=== PATIENT | female | born 1965 | race Caucasian/White ===

== ENCOUNTER 2021-03-13 15:05 | Outpatient (REF) | payer OTHER, SELFPAY ==
[2021-03-13 15:48] LABS: MANUAL DIFF FLAG NO
[2021-03-13 15:53] LABS: Basophils Absolute Auto 0.1 X10*3/uL (0.0-0.2); Basophils Percent Auto 0.5 % (0-2); Eosinophils Absolute Auto 2.2 X10*3/uL (0.0-0.4); Eosinophils Percent Auto 22.2 % (0-4); Hematocrit 39.6 % (37-47); Hemoglobin 13.7 g/dl (12.0-16.0); Imm Gran Abs Auto 0.03 X10*3/uL (0.00-0.03); Imm Gran Pct Auto 0.3 % (0.0-0.4); Lymphocytes Absolute Auto 2.5 X10*3/uL (1.2-4.9); Lymphocytes Percent Auto 25.1 % (20-40); Mean Corpuscular HGB Conc 34.6 g/dl (31.0-35.0); Mean Corpuscular Hemoglobin 34.1 pg (27.0-33.0); Mean Corpuscular Volume 98.5 fL (80-98); Mean Platelet Volume 11.3 fL (9.4-12.3); Monocytes Absolute Auto 0.9 X10*3/uL (0.1-1.2); Monocytes Percent Auto 9.3 % (2-11); Neutrophils Absolute Auto 4.2 X10*3/uL (2.0-8.3); Neutrophils Percent Auto 42.6 % (45-73); Platelet Count 346 X10*3/uL (160-400); Red Blood Count 4.02 X10*6/uL (4.20-5.50); Red Cell Distribution Width 11.5 % (11.0-16.0); White Blood Count 9.8 X10*3/uL (4.8-10.8)
[2021-03-13 16:00] LABS: Estimated Average Glucose 128 mg/dL; Hemoglobin A1c % 6.1 %
[2021-03-13 16:22] LABS: Alanine Aminotransferase 16 U/L (0-31); Albumin Level 4.3 g/dL (3.5-5.0); Alkaline Phosphatase 65 U/L (39-117); Anion Gap 10 (12-20); Aspartate Amino Transferase 11 U/L (5-31); Bilirubin Total < 0.2 mg/dL (0.0-1.0); Blood Urea Nitrogen 16 mg/dL (9-16); Calcium 9.8 mg/dL (8.4-10.2); Carbon Dioxide 28 mmol/L (22-29); Chloride 106 mmol/L (96-108); Estimated Glomerular Filt Rate > 60; Glucose Random 111 mg/dL (60-115); Lipase 60 U/L (8-78); Potassium 4.3 mmol/L (3.3-5.1); Sodium 140 mmol/L (135-145); Total Protein 7.1 g/dL (6.5-8.0)
== END 2021-03-13 15:06 | disposition home or self-care (01) ==
LOC: HO.LAB 15:05
PROVIDERS: PCP Internal Medicine; Visit Provider Internal Medicine
DX: R10.9 Unspecified abdominal pain (principal); R73.9 Hyperglycemia, unspecified
CPT/HCPCS: 36415; 80053; 83036; 83690; 85025

== ENCOUNTER 2021-07-06 14:22 | Outpatient (REF) | payer OTHER, SELFPAY ==
--- NOTE | ~2021-07-06 | MM_ITS ---
EXAMINATION: MM SCREENING DIGITAL BREAST TOMOSYNTHESIS, BILATERAL CLINICAL INFORMATION: Screening. Asymptomatic. The lifetime risk of breast cancer based on the Tyrer-Cuzick Model is 25%. COMPARISON: Mammography: 07/10/2020, 06/30/2020, 01/26/2019, 12/30/2017 TECHNIQUE: Digital breast tomosynthesis is performed in both the craniocaudal and mediolateral oblique views along with computer-aided detection (CAD). Synthesized 2D images are generated from the tomosynthesis. FINDINGS: There are scattered areas of fibroglandular density (ACR BI-RADS breast composition Category b). There are no significant masses, abnormal calcifications, or other abnormalities. There are 3 biopsy clip markers again noted left breast mid 9:00 position and 2 outer quadrant. There is no developing density. The axilla and skin contours are unremarkable. No significant changes. MM/MM tomosynthesis screening BI IMPRESSION: No mammographic evidence of malignancy. ASSESSMENT: BI-RADS 2: Benign RECOMMENDATION: 1. Routine annual mammography screening. 2. The lifetime risk of breast cancer based on the Tyrer-Cuzick Model is 25%. Additional annual adjunct screening with breast MRI may be of benefit in women with a risk score of 20% or greater. This patient's information was entered into a reminder system with a target due date for their next mammogram.
== END 2021-07-06 14:23 | disposition home or self-care (01) ==
LOC: HO.MAMMO 14:22
PROVIDERS: PCP Internal Medicine; Visit Provider Internal Medicine
DX: Z12.31 Encounter for screening mammogram for malignant neoplasm of breast (principal)
CPT/HCPCS: 77063; 77067

== ENCOUNTER 2022-07-19 07:33 | Outpatient (REF) | payer OTHER, SELFPAY ==
--- NOTE | ~2022-07-19 | MM_ITS ---
EXAMINATION: MM SCREENING DIGITAL BREAST TOMOSYNTHESIS, BILATERAL CLINICAL INFORMATION: Screening. Asymptomatic. Family history breast cancer, mother. The lifetime risk of breast cancer based on the Tyrer-Cuzick Model is 21%. COMPARISON: Mammography: 07/06/2021, 07/10/2020, 06/30/2020, 01/26/2019 TECHNIQUE: Digital breast tomosynthesis is performed in both the craniocaudal and mediolateral oblique views along with computer-aided detection (CAD). Synthesized 2D images are generated from the tomosynthesis. FINDINGS: There are scattered areas of fibroglandular density (ACR BI-RADS breast composition Category b). There are no significant masses, abnormal calcifications, or other abnormalities. There are 3 biopsy clip markers left breast. Parenchymal pattern is similar to prior studies and there is no developing density or interval architectural abnormality. No significant changes. MM/MM tomosynthesis screening BI IMPRESSION: No mammographic evidence of malignancy. ASSESSMENT: BI-RADS 1: Negative RECOMMENDATION: Routine annual mammography screening. This patient's information was entered into a reminder system with a target due date for their next mammogram.
== END 2022-07-19 07:34 | disposition home or self-care (01) ==
LOC: HO.MAMMO 07:33
PROVIDERS: PCP Internal Medicine; Visit Provider Obstetrics & Gynecology
DX: Z12.31 Encounter for screening mammogram for malignant neoplasm of breast (principal)
CPT/HCPCS: 77063; 77067

== ENCOUNTER 2022-07-31 10:43 | Emergency (ER) | payer OTHER, SELFPAY ==
--- NOTE | 2022-07-31 | ECG_ITS ---
Test Reason : dizzyness/palpitations Blood Pressure : / mmHG Vent. Rate : 065 BPM Atrial Rate : 065 BPM P-R Int : 188 ms QRS Dur : 090 ms QT Int : 410 ms P-R-T Axes : 033 026 022 degrees QTc Int : 426 ms Normal sinus rhythm Normal ECG When compared with ECG of 17-SEP-2017 21:14, Nonspecific T wave abnormality, improved in Anterolateral leads Referred By: Generic ED Physician Electronically Signed By:ZOLTAN PABON
--- NOTE | ~2022-07-31 | XR_ITS ---
EXAMINATION: XR chest 2V CLINICAL INFORMATION: Reason for Exam PALPITATIONS,DIZZY COMPARISON: No prior chest x-ray available in our system for comparison at the time of this dictation. TECHNIQUE: XR chest 2V Lungs and Lucila: Both lungs are clear. Pleura: Normal. Costophrenic angles are sharp. No pneumothorax. Heart: The heart is normal in size. Mediastinum: The mediastinum is within normal limits.. Bones: Skeletal structures included are normal for patient's age. XR/XR chest 2V IMPRESSION: Normal chest x-ray.
[2022-07-31 11:33] VITALS: BP 136/66; PULSE 65; RESP 17; TEMP 36.2; O2SAT 98; BMI 27.7
[2022-07-31 13:44] LABS: MANUAL DIFF FLAG NO
[2022-07-31 13:50] LABS: Basophils Absolute Auto 0.1 X10*3/uL (0.0-0.2); Basophils Percent Auto 1.2 % (0-2); Eosinophils Absolute Auto 0.2 X10*3/uL (0.0-0.4); Eosinophils Percent Auto 3.3 % (0-4); Hematocrit 38.1 % (37.0-47.0); Hemoglobin 13.3 g/dl (12.0-16.0); Imm Gran Abs Auto 0.02 X10*3/uL (0.00-0.03); Imm Gran Pct Auto 0.3 % (0.0-0.4); Lymphocytes Absolute Auto 1.8 X10*3/uL (1.2-4.9); Lymphocytes Percent Auto 26.1 % (20-40); Mean Corpuscular HGB Conc 34.9 g/dl (31.0-35.0); Mean Corpuscular Hemoglobin 34.1 pg (27.0-33.0); Mean Corpuscular Volume 97.7 fL (80.0-98.0); Mean Platelet Volume 10.7 fL (9.4-12.3); Monocytes Absolute Auto 0.7 X10*3/uL (0.1-1.2); Monocytes Percent Auto 10.4 % (2-11); Neutrophils Absolute Auto 4.1 x10*3/uL (2.0-8.3); Neutrophils Percent Auto 58.7 % (45-73); Platelet Count 299 X10*3/uL (160-400); Red Cell Distribution Width 11.6 % (11.0-16.0); White Blood Count 6.9 X10*3/uL (4.8-10.8)
[2022-07-31 14:16] LABS: Anion Gap 14 (12-20); Blood Urea Nitrogen 18 mg/dL (9-16); Calcium 9.5 mg/dL (8.4-10.2); Carbon Dioxide 25 mmol/L (22-29); Chloride 109 mmol/L (96-108); Creatinine Clr Calc Pharmacy 56.1; Estimated Glomerular Filt Rate 51; Glucose Random 104 mg/dL (60-115); Potassium 4.5 mmol/L (3.3-5.1); Sodium 143 mmol/L (135-145)
[2022-07-31 14:21] LABS: Troponin-I High Sensitivity < 3.5 ng/L (<3.5-17.0)
[2022-07-31 19:00] LABS: COVID-19 Test Negative (Negative)
== END 2022-07-31 20:03 | disposition left against medical advice (07) ==
PROVIDERS: Emergency Provider Emergency Medicine; PCP Internal Medicine
DX: R42 Dizziness and giddiness (principal); R00.2 Palpitations; Z20.822 Contact with and (suspected) exposure to COVID-19
CPT/HCPCS: 71046; 80048; 84484; 85025; 87635; 93005; 99283

== ENCOUNTER 2023-01-25 16:00 | Outpatient (RCR) | payer OTHER, SELFPAY ==
--- NOTE | 2022-11-15 12:32 | MHC.PT.EP ---
[facility] [place] Office [place] Office [place] Office [address] Ciarra Gray [address] [phone] F: [phone] F: [phone] F: [phone] F: [phone] Physical Therapy Plan of Care Date of Evaluation: Date of Surgery: N/A Diagnosis: Pain in left hip Segmental and somatic dysfunction of sacral region Assessment: Pt is a pleasant and motivated 57yo F who presents to PT with R sided low back/hip pain for about ~10 days. She presents to PT with current impairments in pain, decreased ROM, decreased hip/glute strength, decreased core stabilization, decreased muscle length, soft tissue restrictions, and impaired posture. She is limited functionally by prolonged sitting, prolonged standing, sleeping, and bending. She is an excellent candidate for skilled PT in order to address current impairments to facilitate return to PLOF. She is recommended to be seen 1x/week for 5 weeks and will be reassessed at that time. Frequency and Duration: The patient will be seen 1x/week for 5 weeks Short Term Goals: Pt will be I with HEP to promote self management of symptoms Pt will demonstrate improvements in postural awareness throughout the day Pt will demonstrate ability to squat with proper mechanics Shipping Weigher Goals: Pt will achieve full, pain-free ROM all planes of lumbar spine Pt will tolerate prolonged standing and walking > 60 min with minimal to no pain Pt will demonstrate improvements in function as evidenced by statistically significant improvement in Modified Oswestry Low Back Pain Disability Questionnaire Treatment Plan: Modalities to reduce pain, spasms and effusion. Manual therapy to restore motion and function. Therapeutic exercise to improve strength and flexibility. Neuromuscular re-education for posture and balance. Therapeutic activities to return to functional activities of daily living. Electronically signed by: Kathi Reyse, PT, DPT Please sign and return to therapist. Thank you for your referral.
--- NOTE | 2023-01-26 10:38 | MHC.PT.DC ---
[facility] [place] Office [place] Office [place] Office [address] Ciarra Gray [address] [phone] F: [phone] F: [phone] F: [phone] F: [phone] Physical Therapy Discharge Report Diagnosis: Pain in left hip Segmental and somatic dysfunction of sacral region Date of Surgery: N/A Date of Evaluation: 11/15/22 Date of Discharge: 01/26/23 Treatments to Date: 8 Cancellations to Date: No Shows to Date: Discharge Status: Achieved Goals Improved Function Independent with HEP Discharge Summary: Pt has made excellent progress since SOC. She has met her STGs and LTGs. She consistently had minimal to no pain. She improved her score on Modified Oswestry Low Back Pain Disability Index Questionnaire from 13/50 on initial PT evaluation to 1/50 at D/C. She is I with HEP and performs with good mechanics. Provided pt with printed, updated copy of HEP and green thera band and pt verbalized understanding. Pt is being D/C from skilled PT. Pt reports no further questions or concerns for PT at time of D/C. Electronically signed by: Kathi Reyes, PT, DPT Please sign and return to therapist. Thank you for your referral.
== END 2023-01-26 10:38 | disposition home or self-care (01) ==
LOC: HO.PT 16:00
PROVIDERS: PCP Internal Medicine; Visit Provider Internal Medicine
DX: M25.552 Pain in left hip (principal); M99.04 Segmental and somatic dysfunction of sacral region
CPT/HCPCS: 97110; 97140; 97161; 97530

== ENCOUNTER → 2023-04-18 14:20 | Outpatient (BNVA) | payer OTHER, SELFPAY | PROVIDERS: PCP Internal Medicine; Visit Provider Internal Medicine ==

== ENCOUNTER → 2023-06-15 12:57 | Outpatient (REF) | payer OTHER, SELFPAY | LOC: HO.SL 12:57 | PROVIDERS: PCP Internal Medicine; Visit Provider Internal Medicine | DX: G47.33 Obstructive sleep apnea (adult) (pediatric) (principal); R06.83 Snoring; M26.19 Other specified anomalies of jaw-cranial base relationship; R40.0 Somnolence | CPT/HCPCS: 95806 ==

== ENCOUNTER → 2023-06-15 13:28 | Outpatient (BNV) | payer OTHER, SELFPAY | PROVIDERS: PCP Internal Medicine; Visit Provider Internal Medicine | DX: R06.83 Snoring (principal) | CPT/HCPCS: 95806 ==

== ENCOUNTER 2023-06-21 10:31 | Outpatient (AMB) | payer OTHER, SELFPAY ==
--- NOTE | 2023-06-21 10:46 | A.OFFVIS_ITS ---
Intake Vital Signs 06/21/23 10:47 Height 5 ft 4 in Weight 161 lb BMI 27.6 BP 130/82 Blood Pressure Location Lt brachial Position Sitting Pulse 71 Pulse Source Pulse Oximeter Pulse Oximetry (%) 97 Oxygen Delivery Method Room Air Intake Visit Reasons: Obstructive sleep apnea Intake Note: pt is here for follow up of sleep study, still snoring. 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 Her main issue is lot of snoring, and she was almost certain that she has sleep apnea. Her sleep is somewhat unrefreshing, and she does feel tired and sleepy during the daytime, if she is not physically active. Denies any nasal congestion or postnasal drip [facility] Medical History (Updated 06/21/23 @ 11:11 by Kemi Cedeno MD) JADE (obstructive sleep apnea) Retrognathia Snoring Somnolence, daytime Social History Patient Tobacco Use Status: Never used Tobacco Review of Systems Const All systems reviewed & are unremarkable except as noted in HPI and below Eyes Reports no additional complaints ENT Reports no additional complaints Card Denies chest pain, Denies irregular heart rhythm and Denies leg edema Resp Reports no additional complaints GI Reports no additional complaints Reports no additional complaints Musc Reports no additional complaints Skin/Breast Reports system reviewed and no additional complaints, except as documented Neuro Reports no additional complaints Psych Reports depression (MILD CONTROLLED WITH MED) Endo Reports no additional complaints Aller/Immun Reports no additional complaints Physical Exam Vital Signs: BMI result Body Mass Index 27.6 SHE IS MODERATELY OVERWEIGHT. DOES HAVE ROUNDED FACE. NECK IS SHORT, BUT NECK CIRCUMFERENCE 15-1/2 INCH. MALLAMPATI CLASS 4. AND SHE HAS MILD TO MODERATE DEGREE OF RETROGANTHIA OF THE LOWER JAW. Const General: healthy appearing, comfortable, no acute distress, alert and awake Orientation/consciousness: patient oriented x3 HEENT Head: Yes normal to inspection General nose exam: No nasal polyps present and No nasal discharge present Face and sinus: Yes sinuses nontender Mouth: oropharynx normal Teeth and gingiva: other (RETROGANTHIA OF THE LOWER JAW ) Throat: Yes posterior oropharynx normal Eyes General: appearance normal, both eyes and all related structures Neck Neck: Yes normal visual inspection, Yes no lymphadenopathy, Yes trachea midline, Yes no JVD and Yes other (NECK CIRCUMFERENCE 15-1/2 INCH) Thyroid: Thyroid normal Chest Chest palpation & inspection: normal inspection of the chest, normal palpation of entire chest wall and no tenderness Resp Effort & Inspection: normal respiratory effort Auscultation: clear to auscultation bilaterally, no crackles and no wheezes Cardio Palpation: normal PMI Rate: regular rate Rhythm: regular rhythm Heart sounds: no gallops and no murmurs Peripheral pulses: Peripheral pulses 2+ throughout GI Palpation (GI): Soft to palpation, Tenderness to palpation present (GI), No hepatosplenomegaly present and Palpable mass present Auscultation: normal bowel sounds Back/Spine/Pelvis Thoracic/Lumbar Spine: thoracic and lumbar spine normal to inspection Skin General skin exam: no rashes or lesions noted Neuro General: patient oriented x3 and no focal motor deficits Cranial nerves: Yes CN's II-XII intact bilaterally Extrem General: Yes normal to inspection, Yes no clubbing, cyanosis or edema and Yes no calf tenderness Psych Appearance: grossly normal and well kempt Speech and movement: Normal speech and movement present Results Reviewed Results Reviewed: Findings of sleep study are reviewed. TOTAL SLEEP TIME AHI ONLY 1.8. AND SNORING FOR 34% OF THE SLEEP TIME. Assessment & Plan Assessment & Plan (1) Retrognathia: Comment: SHE DOES HAVE MILD TO MODERATE DEGREE OF RETROGANTHIA OF THE LOWER JAW Code(s): M26.19 - Other specified anomalies of jaw-cranial base relationship (2) JADE (obstructive sleep apnea): Comment: HISTORY IS C/W POSSIBLE OBSTRUCTIVE SLEEP APNEA. CONTRIBUTING FACTORS WOULD BE MODERATE OBESITY AND RETROGANTHIA OF THE LOWER JAW . SURPRISINGLY HER HOME-BASED SLEEP STUDY DOES NOT SHOW ANY SLEEP APNEA. Explained to the patient that home-based sleep study does not give us much information about the amount of sleep or quality of sleep. So if she still has symptoms of obstructive sleep apnea, we may have to do polysomnogram study in the sleep lab. For the time being she is advised to lose weight , approximately 10% of her current weight which would be 16 lb. Also advised that she should try to sleep in lateral position as much as possible. SHE WOULD CALL OUR COME IN AFTER 6 MONTHS IF SHE IS STILL BOTHERED BY THE SYMPTOMS OF SNORING AND SLEEP APT. HOWEVER SHE DOES HAVE MODERATELY EXCESSIVE SNORING. Code(s): G47.33 - Obstructive sleep apnea (adult) (pediatric) (3) Snoring: Comment: LONGSTANDING HISTORY OF SNORING, WORSE IN THE PAST FEW YEARS. PER SLEEP STUDY SHE HAS SNORING FOR 34% OF THE SLEEP TIME. SNORING IS CAUSED TO PARTLY BY RETROGANTHIA OF HER LOWER JAW AND PARTLY DUE TO OBESITY. WEIGHT REDUCTION IS WOULD HELP IN MINIMIZING THE SNORING Code(s): R06.83 - Snoring Coding Level of Care Code Est Pt Level 3 (26673) Diagnoses Retrognathia M26.19 JADE (obstructive sleep apnea) G47.33 Snoring R06.83
[2023-06-21 10:47] VITALS: BP 130/82; PULSE 71; O2SAT 97; BMI 27.6
== END 2023-06-21 11:01 | disposition home or self-care (01) ==
PROVIDERS: PCP Internal Medicine; Visit Provider Internal Medicine
DX: M26.19 Other specified anomalies of jaw-cranial base relationship (principal); G47.33 Obstructive sleep apnea (adult) (pediatric); R06.83 Snoring
CPT/HCPCS: 99213

== ENCOUNTER → 2023-06-21 10:31 | Outpatient (BNVA) | payer OTHER, SELFPAY | PROVIDERS: PCP Internal Medicine; Visit Provider Internal Medicine ==

== ENCOUNTER 2023-07-26 07:27 | Outpatient (REF) | payer OTHER, SELFPAY | END 2023-07-26 07:28 | disposition home or self-care (01) | LOC: HO.MAMMO 07:27 | PROVIDERS: PCP Internal Medicine; Visit Provider Internal Medicine | DX: Z12.31 Encounter for screening mammogram for malignant neoplasm of breast (principal) | CPT/HCPCS: 77063; 77067 ==

== ENCOUNTER → 2023-07-26 07:30 | Outpatient (BNV) | payer OTHER, SELFPAY | PROVIDERS: PCP Internal Medicine; Visit Provider Radiology Diagnostic Radiology | DX: Z12.31 Encounter for screening mammogram for malignant neoplasm of breast (principal) | CPT/HCPCS: 77063; 77067 ==

== ENCOUNTER 2024-01-31 13:48 | Outpatient (REF) | payer OTHER, SELFPAY ==
--- NOTE | ~2024-01-31 | XR_ITS ---
EXAMINATION: XR CHEST CLINICAL INFORMATION: Cough. COMPARISON: None available. TECHNIQUE: 2 views of the chest were obtained. FINDINGS: No significant abnormality is noted involving the heart, lungs, mediastinum, bony thorax or soft tissues. XR/XR chest 2V IMPRESSION: Unremarkable chest examination.
== END 2024-01-31 13:49 | disposition home or self-care (01) ==
LOC: HO.XRAY 13:48
PROVIDERS: PCP Internal Medicine; Visit Provider Internal Medicine
DX: R05.9 Cough, unspecified (principal); R06.2 Wheezing
CPT/HCPCS: 71046

== ENCOUNTER 2024-02-28 16:15 | Outpatient (REF) | payer OTHER, SELFPAY ==
[2024-02-28 19:19] LABS: Anion Gap 11 (12-20); Blood Urea Nitrogen 17 mg/dL (9-16); Calcium 9.8 mg/dL (8.4-10.2); Carbon Dioxide 26 mmol/L (22-29); Chloride 106 mmol/L (96-108); Cholesterol 225 mg/dL (<200); Estimated Glomerular Filt Rate > 60; Glucose Random 109 mg/dL (60-115); Sodium 139 mmol/L (135-145)
[2024-03-01 17:58] LABS: Alpha 1 Anti-trypsin 138 mg/dL (83-199)
== END 2024-02-28 16:16 | disposition home or self-care (01) ==
LOC: HO.LAB 16:15
PROVIDERS: PCP Internal Medicine; Visit Provider Internal Medicine
DX: I10 Essential (primary) hypertension (principal); Z82.49 Family history of ischemic heart disease and other diseases of the circulatory system; R73.03 Prediabetes
CPT/HCPCS: 36415; 80048; 82103; 82465

== ENCOUNTER 2024-07-31 07:36 | Outpatient (REF) | payer BC, SELFPAY ==
--- NOTE | ~2024-07-31 | MM_ITS ---
EXAMINATION: MM SCREENING DIGITAL BREAST TOMOSYNTHESIS, BILATERAL CLINICAL INFORMATION: Screening. Asymptomatic. COMPARISON: Mammography: Comparison is made with available priors TECHNIQUE: Digital breast mammography with tomosynthesis is performed in both the craniocaudal and mediolateral oblique views along with computer-aided detection (CAD). FINDINGS: There are scattered areas of fibroglandular density (ACR BI-RADS breast composition Category b). Left breast marker clips. There are no significant masses, abnormal calcifications, or other abnormalities. MM/MM tomosynthesis screening BI IMPRESSION: No mammographic evidence of malignancy. ASSESSMENT: BI-RADS BI-RADS 2 - Benign Findings RECOMMENDATION: Routine annual mammography screening. 1 year F/U This examination should not preclude the clinical evaluation of a suspicious palpable abnormality. This patient's information was entered into a reminder system with a target due date for their next mammogram. Electronically signed by: Josselyn Tejada DO 08/10/2024 10:47 AM EDT
== END 2024-07-31 07:37 | disposition home or self-care (01) ==
LOC: HO.MAMMO 07:36
PROVIDERS: PCP Internal Medicine; Visit Provider Internal Medicine
DX: Z12.31 Encounter for screening mammogram for malignant neoplasm of breast (principal)
CPT/HCPCS: 77063; 77067

== ENCOUNTER → 2024-07-31 07:45 | Outpatient (BNV) | payer BC, SELFPAY | PROVIDERS: PCP Internal Medicine; Visit Provider Internal Medicine | DX: Z12.31 Encounter for screening mammogram for malignant neoplasm of breast (principal) | CPT/HCPCS: 77063; 77067 ==

== ENCOUNTER → 2024-12-20 13:00 | Outpatient (BNVA) | payer OTHER, SELFPAY | PROVIDERS: PCP Internal Medicine; Visit Provider Physician Assistant | DX: M25.511 Pain in right shoulder (principal); M25.512 Pain in left shoulder; M25.522 Pain in left elbow; M25.521 Pain in right elbow | CPT/HCPCS: 99204 ==

== ENCOUNTER 2025-04-16 08:30 | Outpatient (AMB) | payer BC, SELFPAY ==
--- NOTE | 2025-04-16 08:43 | MHC.PC.OV ---
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 Required: No Accompanied by: Self / Same As Patient Allergies amoxicillin [AMOXICILLIN] Allergy (Unknown, Unverified 04/16/25 08:44) RASH Penicillins Allergy (Verified 04/16/25 08:44) Rash Medication List - Last Reconciled 04/16/25 by MIKY Connelly fluoxetine 20 mg PO DAILY latanoprost 0.005% drps ophthalmic (eye) lisinopril 10 mg PO DAILY lorazepam 0.5 mg PO BID PRN HPI HPI Comments History of Present Illness Details 59-year-old female with history of generalized anxiety disorder, hypertension, daytime hypersomnolence/snoring, and obesity with BMI of 30 presents to the office today for management of chronic conditions as well as to establish care. Hypertension-has been without lisinopril for 2 weeks. Blood pressure elevated at 150/100 on recheck Generalized anxiety disorder-no longer following with psychiatrist/therapist. Jack 7 score 2. Overall, anxiety stable on fluoxetine 20 mg daily with occasional use of lorazepam 0.5 mg b.i.d. p.r.n. Obesity-reports walking, but no brisk activity Snoring/daytime hypersomnolence-underwent sleep study 2 years ago which did show moderate snoring, but no apnea. Had been following with pulmonology but last appointment was in 2022 Concerns: Reports she has had intermittent paresthesias of the right hand. Primarily in the 1st 2nd and 3rd fingers. Brought up to former PCP who recommended wrist splint. Reports this happens both daytime and nighttime. Health maintenance: Last colonoscopy 04/2018 which without any concerning polyps or malignancy Mammograms- 07/2024, negative for malignancy but does show scattered areas of fibroglandular density, 1 year follow-up advised. Does have family history of breast cancer in her mother Last PAP smear-04/14/2023-follows with [facility] manager biostatistics ROS General: No fevers, malaise, unintentional weight loss Cardiovascular: No chest pain, palpitations, or leg edema Respiratory: No shortness of breath, wheezing, cough MSK: see hpi Neuro: No headaches, weakness. see hpi Skin: No rashes or lesions EXAM: Constitutional - Awake and Alert, No apparent distress Eyes - PERRL Cardiovascular - S1S2, RRR, No edema Respiratory - Normal lung expansion, Normal respiratory effort, No respiratory distress, CTA bilaterally Extremities - no calf tenderness bilaterally, no swelling. R wrist full ROM, no bony abn, swelling, erythema. Negative phalen and tinnel test Skin - Warm/Dry Neurological - Alert & oriented x3, Psychological - Appropriate affect [facility] Medical History (Updated 04/16/25 @ 09:29 by MIKY Connelly) Carpal tunnel syndrome, right Generalized anxiety disorder HTN (hypertension) Retrognathia JADE (obstructive sleep apnea) Somnolence, daytime Snoring Social History (System 08/31/23 @ 11:34 by Estefania Phelps) Patient Tobacco Use Status: Never used Tobacco Questionnaire PHQ-9 Over the last 2 weeks, how often have you been bothered by any of the following problems? 1. Little interest or pleasure in doing things: not at all 2. Feeling down, depressed, or hopeless: not at all 3. Trouble falling or staying asleep, or sleeping too much: several days 4. Feeling tired or having little energy: several days 5. Poor appetite or overeating: not at all 6. Feeling bad about yourself - or that you are a failure or have let yourself or your family down: not at all 7. Trouble concentrating on things, such as reading the newspaper or watching television: several days 8. Moving or speaking so slowly that other people could have noticed. Or the opposite - being so fidgety or restless that you have been moving around a lot more than usual: not at all 9. Thoughts that you would be better off or of hurting yourself in some way: not at all Total score: 3 Source: Developed by Drs. Colby Mas, Tanya Osorio, Jimmy Haas and colleagues, with an educational suzan from [employer]. Thrive Questionnaire Date Thrive assessed: 04/16/25 I am a: Patient What is your living situation today?: I have a steady place to live Within the past 12 months, did the food you bought not last and you didn't have the money to get more?: Never true Within the past 12 months, did you worry whether your food would run out before you got money to buy more?: Never true Do you have trouble paying for medicines?: No Do you have trouble getting transportation to medical appointments?: No Do you have trouble paying your heating and electricity bill?: No Do you have trouble taking care of your child, family member or friend?: No Do you have trouble with day-to-day activities such as bathing, preparing meals, shopping, managing finances, etc.?: No Are you currently unemployed and looking for a job?: No Are you interested in more education?: No Please select the resources that you would like help with: None THRIVE Score: 0 JACK-7 AMB Questionnaire JACK-7 Date JACK - 7 assessed: 04/16/25 Feeling nervous, anxious, or on edge: 1 = Several days Not being able to stop or control worryin = Not at all Worrying too much about different things: 1 = Several days Trouble relaxin = Not at all Being so restless that it is hard to sit still: 0 = Not at all Becoming easily annoyed or irritable: 0 = Not at all Feeling afraid as if something awful might happen: 0 = Not at all Total JACK-7 score (0-4 normal; 5-9 mild; 10-14 moderate; 15-21 severe): 2 Source: Developed by Drs. Colby Mas, Tanya Osorio, Jimmy Haas and colleagues, with an educational suzan from [employer]. Physical exam (Primary Care) Vital Signs: Last Vital Signs Temp 97.7 F 04/16/25 08:46 Pulse 70 04/16/25 08:46 Resp 18 04/16/25 08:46 BP 150/90 H 04/16/25 09:30 Pulse Ox 98 04/16/25 08:46 Oxygen Delivery Method Room Air 04/16/25 08:46 BMI result Body Mass Index 30.0 Tobacco/Smoking Status: Tobacco use Status Patient Tobacco Use Status Never used Tobacco 04/16/25 08:50 PHQ-9: PHQ-9 Score PHQ-9: Total score 3 04/16/25 09:21 Thrive Assessment: Date of Thrive Assessment Date Thrive assessed 04/16/25 04/16/25 09:18 Coding Level of Care Code New Pt Level 4 (56121) Complex EM visit Add On G2211 Diagnoses HTN (hypertension) I10 Somnolence, daytime R40.0 Generalized anxiety disorder F41.1 Carpal tunnel syndrome, right G56.01 Assessment & Plan Assessment & Plan (1) HTN (hypertension): Code(s): I10 - Essential (primary) hypertension Category: Medical Plan: Uncontrolled. Resume lisinopril 10 mg daily. Low-sodium diet. Return for nursing visit for blood pressure recheck (2) Somnolence, daytime: Comment: PATIENT DOES HAVE DAYTIME SOMNOLENCE. ESS= 09/30 Code(s): R40.0 - Somnolence Category: Medical Plan: Home sleep study ordered. If positive for sleep apnea, will refer back to pulmonology. However, can also consider referral to ENT. Weight loss efforts encouraged (3) Generalized anxiety disorder: Code(s): F41.1 - Generalized anxiety disorder Category: Medical Plan: Stable. Continue fluoxetine 20 mg daily and lorazepam p.r.n.. Continue therapist if needed (4) Carpal tunnel syndrome, right: Code(s): G56.01 - Carpal tunnel syndrome, right upper limb Category: Medical Plan: Intermittent. Recommend wrist splint nightly should symptoms recur. Recommend ibuprofen, ice/heat. Given gentle exercises to perform at home Plan Follow-up in the office in 6 months. Labs to be completed today. Recommend increased brisk exercise and weight-bearing. Healthy diet advised. Follow-up with RN for blood pressure check. Mecications as ordered Orders: Orders Complete Blood Count Auto Diff Today Z13.220 - Encounter for screening for lipoid disorders Lipid Panel Today Z13.220 - Encounter for screening for lipoid disorders Liver Panel Today Z13.220 - Encounter for screening for lipoid disorders RT home sleep study Today G47.33 - Obstructive sleep apnea (adult) (pediatric), R06.83 - Snoring, R40.0 - Somnolence Basic Metabolic Panel Today Z13.220 - Encounter for screening for lipoid disorders Vitamin D 25-OH Total Today Z13.220 - Encounter for screening for lipoid disorders Medications: New lisinopril 10 mg PO DAILY 90 tabs 1RF lorazepam 0.5 mg PO BID PRN 60 tabs 0RF anxiety
[2025-04-16 08:46] VITALS: BP 166/100; PULSE 70; RESP 18; TEMP 36.5; O2SAT 98
[2025-04-16 09:30] VITALS: BP 150/90
== END 2025-04-16 09:16 | disposition home or self-care (01) ==
LOC: HO.HMCHD 08:31
PROVIDERS: PCP Internal Medicine; Visit Provider Physician Assistant
DX: I10 Essential (primary) hypertension (principal); R40.0 Somnolence; F41.1 Generalized anxiety disorder; G56.01 Carpal tunnel syndrome, right upper limb

== ENCOUNTER 2025-04-16 09:28 | Outpatient (REF) | payer BC, SELFPAY ==
[2025-04-16 09:52] LABS: MANUAL DIFF FLAG NO
[2025-04-16 09:57] LABS: Basophils Absolute Auto 0.1 X10*3/uL (0.0-0.2); Basophils Percent Auto 1.3 % (0-2); Eosinophils Absolute Auto 0.3 X10*3/uL (0.0-0.4); Eosinophils Percent Auto 4.7 % (0-4); Hematocrit 38.4 % (37.0-47.0); Hemoglobin 13.3 g/dl (12.0-16.0); Imm Gran Abs Auto 0.01 X10*3/uL (0.00-0.03); Imm Gran Pct Auto 0.2 % (0.0-0.4); Lymphocytes Absolute Auto 1.6 X10*3/uL (1.2-4.9); Mean Corpuscular HGB Conc 34.6 g/dl (31.0-35.0); Mean Corpuscular Hemoglobin 33.3 pg (27.0-33.0); Mean Platelet Volume 11.1 fL (9.4-12.3); Monocytes Absolute Auto 0.8 X10*3/uL (0.1-1.2); Neutrophils Absolute Auto 3.2 x10*3/uL (2.0-8.3); Neutrophils Percent Auto 53.8 % (45-73); Platelet Count 292 X10*3/uL (160-400); Red Cell Distribution Width 11.5 % (11.0-16.0)
[2025-04-16 11:39] LABS: Alanine Aminotransferase 90 U/L (0-31); Albumin Level 4.5 g/dL (3.5-5.0); Alkaline Phosphatase 52 U/L (39-117); Anion Gap 10 (12-20); Aspartate Amino Transferase 38 U/L (5-31); Bilirubin Direct 0.1 mg/dL (0.0-0.5); Bilirubin Total 0.3 mg/dL (0.0-1.0); Blood Urea Nitrogen 14 mg/dL (9-16); Calcium 9.5 mg/dL (8.4-10.2); Carbon Dioxide 24 mmol/L (22-29); Chloride 111 mmol/L (96-108); Cholesterol 211 mg/dL (<200); Estimated Glomerular Filt Rate > 60; Glucose Random 109 mg/dL (60-115); HDL Cholesterol 52 mg/dL (>40); LDL Cholesterol Calculated 119 mg/dL (<100); Potassium 3.9 mmol/L (3.3-5.1); Sodium 141 mmol/L (135-145); Total Protein 6.9 g/dL (6.5-8.0); Triglycerides 203 mg/dL (<150)
[2025-04-16 11:42] LABS: Vitamin D 25-OH Total 39.1 ng/mL (>30)
== END 2025-04-16 09:29 | disposition home or self-care (01) ==
LOC: HO.10HDL 09:28
PROVIDERS: Visit Provider Physician Assistant
DX: Z13.220 Encounter for screening for lipoid disorders (principal); Z13.0 Encounter for screening for diseases of the blood and blood-forming organs and certain disorders involving the immune mechanism
CPT/HCPCS: 36415; 80048; 80061; 80076; 82306; 85025

== ENCOUNTER → 2025-06-24 10:55 | Outpatient (REF) | payer BC, SELFPAY | LOC: HO.SL 10:55 | PROVIDERS: PCP Physician Assistant; Visit Provider Physician Assistant | DX: R40.0 Somnolence (principal); G47.33 Obstructive sleep apnea (adult) (pediatric); R06.83 Snoring | CPT/HCPCS: 95806 ==

== ENCOUNTER → 2025-06-24 11:07 | Outpatient (BNV) | payer BC, SELFPAY | PROVIDERS: PCP Physician Assistant; Visit Provider Internal Medicine | DX: R06.83 Snoring (principal) | CPT/HCPCS: 95806 ==

== ENCOUNTER → 2025-08-13 07:30 | Outpatient (BNV) | payer BC, SELFPAY | PROVIDERS: PCP Physician Assistant; Visit Provider Internal Medicine | DX: Z12.31 Encounter for screening mammogram for malignant neoplasm of breast (principal) | CPT/HCPCS: 77063; 77067 ==

== ENCOUNTER 2025-08-13 07:31 | Outpatient (REF) | payer BC, SELFPAY | END 2025-08-13 07:32 | disposition home or self-care (01) | LOC: HO.MAMMO 07:31 | PROVIDERS: PCP Physician Assistant; Visit Provider Physician Assistant | DX: Z12.31 Encounter for screening mammogram for malignant neoplasm of breast (principal) | CPT/HCPCS: 77063; 77067 ==

== ENCOUNTER 2025-10-15 08:48 | Outpatient (AMB) | payer BC, SELFPAY ==
--- NOTE | 2025-10-15 08:50 | MHC.PC.OV ---
Vital Signs 10/15/25 08:56 10/15/25 09:13 Height 5 ft 1 in Weight 69.116 kg BMI 28.8 BP 146/86 H 124/74 Respiration 14 Pulse 88 Pulse Source Pulse Oximeter Temp 97.0 F Temp Source Temporal Artery Scan Pulse Oximetry (%) 98 Oxygen Delivery Method Room Air Intake Visit Reasons: 6 Month F/U - see comments Crystal Grower Required: No Accompanied by: Self / Same As Patient Allergies amoxicillin (AMOXICILLIN) Allergy (Unknown, Unverified 10/15/25 08:55) RASH Penicillins Allergy (Verified 10/15/25 08:55) Rash Tobacco use date assessed: 10/15/25 Dental Screening Dental Screen Date: 10/15/25 Did you have a dental visit in the last 12 months?: Yes Did you have a dental problem in the last 6 months where you did not have access to dental care?: No Was dental information given to patient?: Patient has dentist HPI HPI Comments History of Present Illness Details 59-year-old female with history of generalized anxiety disorder, hypertension, daytime hypersomnolence/snoring, and obesity with BMI of 30 presents to the office today for management of chronic conditions. Hypertension-On lisinopril 10mg daily. Blood pressure elevated at 146/86, on recheck 124/74 Generalized anxiety disorder-no longer following with psychiatrist/therapist. Overall anxiety stable on fluoxetine 20 mg daily with occasional use of lorazepam 0.5 mg b.i.d. p.r.n. she does state that her brother, age 57, unexpectedly from [place] 2 weeks ago. She has been grieving his loss. She has been worrying about her other brothers as well. She does have a good support system with whom she keeps close contact with. She has also been keeping busy and working to not go towards comfort foods. She has also been walking for exercise. PHQ-9 score 5, elis 7 score for Obesity-reports walking, but no brisk activity. Overall healthy diet Snoring/daytime hypersomnolence-underwent sleep study 2 years ago which did show moderate snoring, but no apnea. Had been following with pulmonology previously, but last appointment was in 2022 Concerns: As above Health maintenance: Last colonoscopy 04/2018 which without any concerning polyps or malignancy Mammograms- 07/2024, negative for malignancy but does show scattered areas of fibroglandular density. Repeat mammogram 08/2025 showing similar areas of fibroglandular density but no evidence of malignancy. 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 see hpi Psych: See HPI Skin: No rashes or lesions EXAM: Constitutional - Awake and Alert, No apparent distress Eyes - PERRL Cardiovascular - S1S2, RRR, No edema Respiratory - Normal lung expansion, Normal respiratory effort, No respiratory distress, CTA bilaterally Extremities - no calf tenderness bilaterally, no swelling. R wrist full ROM, no bony abn, swelling, erythema. Negative phalen and tinnel test Skin - Warm/Dry Neurological - Alert & oriented x3, Psychological - Appropriate affect, tearful at times [facility] Medical History Grief reaction HLD (hyperlipidemia) Carpal tunnel syndrome, right Generalized anxiety disorder HTN (hypertension) Retrognathia JADE (obstructive sleep apnea) Somnolence, daytime Snoring Surgical History History of colonoscopy (~05/03/18) Social History Housing: House Patient Tobacco Use Status: Never used Tobacco e-Cigarette/Vaping Use: Never Used service: No Current occupational status: employed Cognitive needs: No Hearing needs: No Vision needs: Yes (Rx glasses) Questionnaire PHQ-9 Over the last 2 weeks, how often have you been bothered by any of the following problems? 1. Little interest or pleasure in doing things: several days 2. Feeling down, depressed, or hopeless: several days 3. Trouble falling or staying asleep, or sleeping too much: several days 4. Feeling tired or having little energy: several days 5. Poor appetite or overeating: not at all 6. Feeling bad about yourself - or that you are a failure or have let yourself or your family down: not at all 7. Trouble concentrating on things, such as reading the newspaper or watching television: several days 8. Moving or speaking so slowly that other people could have noticed. Or the opposite - being so fidgety or restless that you have been moving around a lot more than usual: not at all 9. Thoughts that you would be better off or of hurting yourself in some way: not at all Total score: 5 Depression Screening Interpretation: Negative Depression Screening Done: Yes 67925 - PHQ-9 Billing: Yes Source: Developed by Drs. Colby Mas, Tanya Osorio, Jimmy Haas and colleagues, with an educational suzan from [email or web address]. Thrive Questionnaire Date Thrive assessed: 04/16/25 AUDIT C Alcohol Use Questionnaire (AUDIT-C) 2. How many drinks containing alcohol do you have on a typical day when you are drinking?: 1 or 2 3. How often do you have six or more drinks on one occasion?: Never Total Score: 0 ELIS-7 AMB Questionnaire ELIS-7 Date ELIS - 7 assessed: 04/16/25 Feeling nervous, anxious, or on edge: 3 = Nearly every day Not being able to stop or control worryin = Not at all Worrying too much about different things: 0 = Not at all Trouble relaxin = Not at all Being so restless that it is hard to sit still: 1 = Several days Becoming easily annoyed or irritable: 0 = Not at all Feeling afraid as if something awful might happen: 0 = Not at all Total ELIS-7 score (0-4 normal; 5-9 mild; 10-14 moderate; 15-21 severe): 4 Source: Developed by Drs. Cloby Mas, Tanya Osorio, Jimmy Haas and colleagues, with an educational suzan from [email or web address]. ELIS-7 Assessment Billing ELIS-7 Assessment Tool: ELIS-7 Assessment 49392 Physical exam (Primary Care) Vital Signs: Last Vital Signs Temp 97.0 F 10/15/25 08:56 Pulse 88 10/15/25 08:56 Resp 14 10/15/25 08:56 BP 124/74 10/15/25 09:13 Pulse Ox 98 10/15/25 08:56 Oxygen Delivery Method Room Air 10/15/25 08:56 BMI result Body Mass Index 28.8 Tobacco/Smoking Status: Tobacco use Status Tobacco use date assessed 10/15/25 10/15/25 08:58 Patient Tobacco Use Status Never used Tobacco 10/15/25 08:53 e-Cigarette/Vaping Use Never Used 10/15/25 08:58 PHQ-9: PHQ-9 Score PHQ-9: Total score 5 10/15/25 09:08 Depression Screening Interpretation: Negative Thrive Assessment: Date of Thrive Assessment Date Thrive assessed 04/16/25 10/15/25 08:53 Coding Level of Care Code Est Pt Level 4 (74453) Complex visit Add On G2211 Diagnoses HTN (hypertension) I10 Generalized anxiety disorder F41.1 HLD (hyperlipidemia) E78.5 Grief reaction F43.20 Additional Codes ELIS-7 Assessment Billing - ELIS-7 Assessment Tool: ELIS-7 Assessment 48770 ([id number]) PHQ-9 - 25501 - PHQ-9 Billing: Yes ([id number]) Assessment & Plan Assessment & Plan (1) HTN (hypertension): Code(s): I10 - Essential (primary) hypertension Category: Medical Plan: Controlled on recheck. Continue lisinopril 10 mg daily. Low-sodium diet evaluate renal function electrolyte levels (2) Generalized anxiety disorder: Code(s): F41.1 - Generalized anxiety disorder Category: Medical Plan: Stable. Continue fluoxetine 20 mg daily and lorazepam p.r.n.. Continue therapist if needed (3) HLD (hyperlipidemia): Code(s): E78.5 - Hyperlipidemia, unspecified Category: Medical Plan: Lipid panel ordered with LDL direct. ASCVD risk score to be calculated pending results of studies. Diet low in saturated fats and highly processed foods recommended as well as exercise as discussed in the office (4) Grief reaction: Code(s): F43.20 - Adjustment disorder, unspecified Category: Medical Plan: Continue reaching out to supports and using coping mechanisms. Also recommend reaching out to a counselor Plan Follow-up in the office in 6 months. Labs to be completed today as well as several days prior to next visit Orders: Orders Basic Metabolic Panel Today E78.5 - Hyperlipidemia, unspecified, I10 - Essential (primary) hypertension, R74.01 - Elevation of levels of liver transaminase levels Lipid Panel Today E78.5 - Hyperlipidemia, unspecified, I10 - Essential (primary) hypertension, R74.01 - Elevation of levels of liver transaminase levels Liver Panel Today E78.5 - Hyperlipidemia, unspecified, I10 - Essential (primary) hypertension, R74.01 - Elevation of levels of liver transaminase levels Basic Metabolic Panel 6 Months E78.5 - Hyperlipidemia, unspecified, I10 - Essential (primary) hypertension Vitamin D 25-OH Total 6 Months E78.5 - Hyperlipidemia, unspecified, I10 - Essential (primary) hypertension Lipid Panel 6 Months E78.5 - Hyperlipidemia, unspecified, I10 - Essential (primary) hypertension Medications: Refilled lorazepam 0.5 mg PO BID PRN 60 tabs 0RF anxiety Patient Instructions: Check [email or web address]
[2025-10-15 08:56] VITALS: BP 146/86; PULSE 88; RESP 14; TEMP 36.1; O2SAT 98; BMI 28.8
[2025-10-15 09:13] VITALS: BP 124/74
== END 2025-10-15 09:24 | disposition home or self-care (01) ==
LOC: HO.HMCHD 08:49
PROVIDERS: PCP Physician Assistant; Visit Provider Physician Assistant
DX: I10 Essential (primary) hypertension (principal); F41.1 Generalized anxiety disorder; E78.5 Hyperlipidemia, unspecified; F43.20 Adjustment disorder, unspecified

== ENCOUNTER → 2025-10-15 08:48 | Outpatient (BNVA) | payer BC, SELFPAY | PROVIDERS: PCP Physician Assistant; Visit Provider Physician Assistant | DX: Z13.31 Encounter for screening for depression (principal); Z13.39 Encounter for screening examination for other mental health and behavioral disorders | CPT/HCPCS: 96127 ==

== ENCOUNTER 2025-10-15 09:25 | Outpatient (REF) | payer BC, SELFPAY ==
[2025-10-15 10:44] LABS: Alanine Aminotransferase 34 U/L (0-31); Albumin Level 4.6 g/dL (3.5-5.0); Alkaline Phosphatase 78 U/L (39-117); Anion Gap 10 (12-20); Aspartate Amino Transferase 20 U/L (5-31); Blood Urea Nitrogen 16 mg/dL (9-16); Calcium 9.5 mg/dL (8.4-10.2); Carbon Dioxide 28 mmol/L (22-29); Chloride 108 mmol/L (96-108); Cholesterol 213 mg/dL (<200); Estimated Glomerular Filt Rate > 60; HDL Cholesterol 48 mg/dL (>40); Potassium 4.0 mmol/L (3.3-5.1); Sodium 142 mmol/L (135-145); Total Protein 7.3 g/dL (6.5-8.0); Triglycerides 287 mg/dL (<150)
== END 2025-10-15 09:26 | disposition home or self-care (01) ==
LOC: HO.10HDL 09:25
PROVIDERS: Visit Provider Physician Assistant
DX: I10 Essential (primary) hypertension (principal); E78.5 Hyperlipidemia, unspecified; R74.01 Elevation of levels of liver transaminase levels
CPT/HCPCS: 36415; 80048; 80061; 80076